=== PATIENT | male | born 1965 | race Caucasian/White ===

== ENCOUNTER 2018-04-26 18:15 | Emergency (ER) | payer MEDICAID ==
[~2018-04-26] VITALS: Ht 182.9 cm; Wt 136.4 kg
[2018-04-26 18:20] VITALS: Ht 182.9 cm; Wt 136.4 kg
[2018-04-26] MEDS ORDERED: NORVASC2.5 MG (18:26)
[2018-04-26] MEDS ORDERED: ZOLOFT25 MG (18:26)
[2018-04-26] MEDS ORDERED: LISINOPRIL2.5 MG (18:26)
[2018-04-26] MEDS ORDERED: INVEGA1.5 MG (18:26)
[2018-04-26] MEDS ORDERED: CATAPRES0.1 MG (18:26)
[2018-04-26] MEDS ORDERED: LISINOPRIL10 MG (18:26)
[2018-04-26] MEDS ORDERED: TEGRETOL 100 M100 MG (18:26)
[2018-04-26 18:59] LABS: BASOPHILS 0.4 % (0-2); EOSINOPHILS 0.1 % (0-7); HEMATOCRIT 42.8 % (42.0-54.0); HEMOGLOBIN 14.5 g/dL (13.5-17.5); IMMATURE GRANULOCYTES 0.4 % (0-5); MCHC 33.9 g/dL (31.0-37.0); MCV 88.4 fL (80.0-100.0); MEAN PLATELET VOLUME 10.2 fL (7.4-10.4); MONOCYTES 7.2 % (2-11); NEUTROPHILS 86.9 % (40-80); PLATELET COUNT 138 10x3/uL (130-400); RBC 4.84 10x6/uL (4.20-6.10); RDW 13.2 % (11.5-14.5); WBC 12.8 10x3/uL (4.8-10.8)
[2018-04-26 19:19] LABS: ALBUMIN 3.4 g/dL (3.4-5.0); ALKALINE PHOSPHATASE 73 U/L (46-116); ALT (SGPT) 28 U/L (10-68); BILIRUBIN - TOTAL 0.32 mg/dL (0.2-1.3); CALC OSMOLALITY 264 mosm/kg (275-300); CALCIUM 7.7 mg/dL (8.5-10.1); CARBON DIOXIDE 26.4 mmol/L (21.0-32.0); CHLORIDE - SERUM 97 mmol/L (98-107); CREATININE - SERUM 0.9 mg/dL (0.6-1.3); GLUCOSE 125 mg/dL (74-106); POTASSIUM - SERUM 3.9 mmol/L (3.5-5.1); PROTEIN - SERUM 7.2 g/dL (6.4-8.2); SODIUM 132 mmol/L (136-145); UREA NITROGEN 11 mg/dL (7-18); eGFR NON AFRICAN AMERICAN > 90 mL/min (90-120)
[2018-04-26] MEDS ORDERED: ZITHROMAX500 MG PO (20:12)
[2018-04-26] MEDS ORDERED: AMOXICILLIN500 M1 PO (20:12)
[2018-04-26 22:00] VITALS: BP 105/76
== END 2018-04-26 22:00 | disposition home or self-care (01) ==
LOC: D.ER 18:15
PROVIDERS: Family Medicine
DX: R50.9 Fever, unspecified (principal); J40 Bronchitis, not specified as acute or chronic; R05 Cough